=== PATIENT | female | born 1930 | race Caucasian/White ===

== ENCOUNTER 2016-09-22 10:48 | Emergency (ER) | payer MEDICARE, MEDICAID ==
[~2016-09-22] VITALS: Ht 144.8 cm; Wt 80.0 kg
[~2016-09-22 10:48] MED LIST: ALLO100 PO; AMLO5TAB2 PO; ASPI81TA11 PO; DEXI60CA PO; METO50TA PO; PRAV10TA PO
[2016-09-22 10:50] VITALS: BP 174/75; PULSE 84; PULSE 85; RESP 16; RESP 18; TEMP 98.4; O2SAT 92; O2SAT 95
--- NOTE | 2016-09-22 11:13 | PD ---
HPI Chief Complaint: Pain: Acute or Chronic Time Seen by Provider: 11:07 Travel History International Travel<30 days: No Contact w/Intl Traveler<30days: No Traveled to known affect area: No History of Present Illness HPI Delightful 85-year-old female brought in by EMS for progressively worsening left lower extremity pain and swelling. Patient has a history of DVT approximately 10 years ago on the right lower leg. Patient currently takes no anticoagulants other than 81 mg of aspirin per day. Patient states she's had left lower leg pain over the past week. She states since yesterday has become much worse with pain localized in the right distal medial thigh with some localized swelling. Patient denies fever, chills, shortness of breath, or distal lower leg numbness or weakness. She has chronic low back pain but no worse than normal. Pain is worse with weightbearing. Pain with palpation is 8/ 10, but at rest is mild at 10 over 2. It is gotten progressively worse over the past several days. Patient is noted to have normal pedal and posterior tibialis pulses in the left lower leg. Patient did call her PCP this morning who recommended she come in to the hospital for evaluation. She is allergic to codeine and penicillin. PFSH Past Medical History Hx Anticoagulant Therapy: No Arthritis: Yes Blood Disorders: No Heart Rhythm Problems: No Cancer: Yes (CERVICAL - HYSTERECTOMY) Cardiovascular Problems: Yes (HTN) High Cholesterol: Yes Chemotherapy: No Chest Pain: Yes Congestive Heart Failure: No Diabetes: No Diminished Hearing: No Deep Vein Thrombosis: Yes (R LEG) Endocrine: Yes GERD: Yes Genitourinary: No Hypertension: Yes Immune Disorder: No Musculoskeletal: Yes (arthritis) Neurologic: No Psychiatric: No Reproductive: Yes (CERVICAL CANCER) Respiratory: No Radiation Therapy: No Thyroid Disease: Yes (HYPOTHYROID) Tetanus Vaccination: Unknown Influenza Vaccination: Yes ?: Not Past Surgical History Appendectomy: Yes Cholecystectomy: Yes Gynecologic Surgery: Yes (RADICAL HYSTERECTOMY ) Hysterectomy: Yes Tonsillectomy: Yes Social History Alcohol Use: Yes (OCCASIONAL) Tobacco Use: No (30 YEARS AGO ) Substance Use: No Allergies-Medications (Allergen,Severity, Reaction): Coded Allergies: Codeine (Verified Allergy, Severe, Rash, 09/22/16) Penicillin (Verified Allergy, Severe, 09/22/16) Reported Meds & Prescriptions Reported Meds & Active Scripts Active Reported Zyloprim (Allopurinol) 100 Mg Tab 100 Mg PO BID NEB Dexilant (Dexlansoprazole) 60 Mg Cap 60 Mg PO DAILY Amlodipine (Amlodipine Besylate) 5 Mg Tab 5 Mg PO DAILY Pravastatin 10 Mg Tab 10 Mg PO DAILY Metoprolol Tartrate 50 Mg Tab 50 Mg PO BID Aspirin EC (Aspirin) 81 Mg Tabdr 81 Mg PO DAILY Review of Systems Except as stated in HPI: all other systems reviewed are Neg General / Constitutional: No: Fever, Chills Eyes: No: Visual changes HENT: No: Headaches Cardiovascular: No: Chest Pain or Discomfort, Palpitations, Irregular Rhythm, Dyspnea on exertion Respiratory: No: Cough, Shortness of Breath, Wheezing, Pleuritic Pain Gastrointestinal: No: Abdominal Pain Genitourinary: No: Dysuria Musculoskeletal: Positive: Myalgias, Arthralgias, Pain, No: Limited ROM, Weakness (see history present illness), Cramping, Edema Skin: No Rash Neurologic: No: Weakness Psychiatric: No: Depression Endocrine: No: Polydipsia Hematologic/Lymphatic: No: Easy Bruising Physical Exam Narrative GENERAL: Patient appears in no acute distress. She is alert and oriented and very delightful. SKIN: Warm and dry. Normal color. Normal turgor. No signs of cellulitis or open wound in the left lower extremity. HEAD: Atraumatic. Normocephalic. EYES: Pupils equal and round. No scleral icterus. No injection or drainage. ENT: No nasal bleeding or discharge. Mucous membranes pink and moist. NECK: Trachea midline. No JVD. Supple and nontender. CARDIOVASCULAR: Regular rate and rhythm. No murmurs gallops or rubs. RESPIRATORY: No accessory muscle use. Clear to auscultation. Breath sounds equal bilaterally. MUSCULOSKELETAL: Extremities without clubbing, cyanosis, or edema. No obvious deformities. Patient has mild swelling noted in the left distal medial thigh with localized tenderness extending into the mid thigh and also pain with palpation of the left medial calf, but negative Homans sign. NEUROLOGICAL: Awake and alert. No obvious cranial nerve deficits. Motor grossly within normal limits. Five out of 5 muscle strength in the arms and legs. Normal speech. PSYCHIATRIC: Appropriate mood and affect; insight and judgment normal. Data Data Last Documented VS Vital Signs Date Time Temp Pulse Resp B/P Pulse Ox O2 Delivery O2 Flow Rate FiO2 09/22/16 11:25 18 96 Room Air 09/22/16 10:50 98.4 85 174/75 Orders Complete Blood Count With Diff (09/22/16 11:13) Comprehensive Metabolic Panel (09/22/16 11:13) Act Partial Throm Time (Ptt) (09/22/16 11:13) Prothrombin Time / Inr (Pt) (09/22/16 11:13) Iv Access Insert/Monitor (09/22/16 11:13) Electrocardiogram (09/22/16 11:13) Ecg Monitoring (09/22/16 11:13) Oximetry (09/22/16 11:13) Chest, Single Ap (09/22/16 11:13) Sodium Chloride 0.9% Flush (Ns Flush) (09/22/16 11:15) Us Leg Venous Doppler (09/22/16 11:13) Labs Laboratory Tests Test 09/22/16 11:00 White Blood Count 11.3 TH/MM3 Red Blood Count 4.46 MIL/MM3 Hemoglobin 12.7 GM/DL Hematocrit 38.9 % Mean Corpuscular Volume 87.2 FL Mean Corpuscular Hemoglobin 28.5 PG Mean Corpuscular Hemoglobin 32.6 % Concent Red Cell Distribution Width 15.4 % Platelet Count 263 TH/MM3 Mean Platelet Volume 8.5 FL Neutrophils (%) (Auto) 68.3 % Lymphocytes (%) (Auto) 19.7 % Monocytes (%) (Auto) 8.9 % Eosinophils (%) (Auto) 2.5 % Basophils (%) (Auto) 0.6 % Neutrophils # (Auto) 7.7 TH/MM3 Lymphocytes # (Auto) 2.2 TH/MM3 Monocytes # (Auto) 1.0 TH/MM3 Eosinophils # (Auto) 0.3 TH/MM3 Basophils # (Auto) 0.1 TH/MM3 CBC Comment DIFF FINAL Differential Comment Prothrombin Time 10.4 SEC Prothromb Time International 0.9 RATIO Ratio Activated Partial 29.2 SEC Thromboplast Time Sodium Level 138 MEQ/L Potassium Level 4.3 MEQ/L Chloride Level 103 MEQ/L Carbon Dioxide Level 26.1 MEQ/L Anion Gap 9 MEQ/L Blood Urea Nitrogen 18 MG/DL Creatinine 0.91 MG/DL Estimat Glomerular Filtration 58 ML/MIN Rate Random Glucose 143 MG/DL Calcium Level 9.3 MG/DL Total Bilirubin 0.8 MG/DL Aspartate Amino Transf 15 U/L (AST/SGOT) Alanine Aminotransferase 16 U/L (ALT/SGPT) Alkaline Phosphatase 130 U/L Total Protein 7.5 GM/DL Albumin 3.7 GM/DL MDM Medical Decision Making Medical Screen Exam Complete: Yes Emergency Medical Condition: Yes Medical Record Reviewed: Yes Differential Diagnosis Left leg pain. Left leg swelling. Possible DVT. Narrative Course Patient is medically stable at time of exam. Labs ordered including CBC, CMP, PT PTT and INR. Chest x-ray is ordered as well as Doppler ultrasound of the left lower extremity. Chest x-ray is unremarkable per radiologist. CBC shows slight leukocytosis of 11.3, without right shift. CMP is unremarkable. Coag studies are normal. Ultrasound shows no DVT per radiologist. Discuss results with the patient. Recommend trial of prednisone 20 mg daily for the next 5 days. Patient can take Tylenol as needed as well for pain. Patient should follow-up with her primary care physician in the next week to ensure improvement. Patient can return to emergency department if symptoms worsen as discussed. Diagnosis Primary Impression: Leg pain, left Additional Impression: Sciatica of left side Referrals: Primary Care Physician Patient Instructions: General Instructions, Sciatica (ED) Additional Instructions: Chest x-ray is unremarkable per radiologist. CBC shows slight leukocytosis of 11.3, without right shift. CMP is unremarkable. Coag studies are normal. Ultrasound shows no DVT per radiologist. Discuss results with the patient. Recommend trial of prednisone 20 mg daily for the next 5 days. Patient can take Tylenol as needed as well for pain. Patient should follow-up with her primary care physician in the next week to ensure improvement. Patient can return to emergency department if symptoms worsen as discussed. Med/Other Pt SpecificInfo: Prescription(s) given Disposition: 01 DISCHARGE HOME Condition: Stable Moody Christopher Sep 22, 2016 11:13
[2016-09-22] MEDS ORDERED: SODIUM CHLORIDE 0.9% FLUSH 5 ML FLUSH IVF PRN (11:15)
[2016-09-22 11:25] VITALS: RESP 18; O2SAT 96
--- NOTE | 2016-09-22 11:38 | PD ---
Physical Exam Date Seen by Provider: Sep 22, 2016 Data Data Last Documented VS Vital Signs Date Time Temp Pulse Resp B/P Pulse Ox O2 Delivery O2 Flow Rate FiO2 09/22/16 11:25 18 96 Room Air 09/22/16 10:50 98.4 85 174/75 Patient is awake and alert and in no acute distress. She is having no respiratory difficulty. Orders Complete Blood Count With Diff (09/22/16 11:13) Comprehensive Metabolic Panel (09/22/16 11:13) Act Partial Throm Time (Ptt) (09/22/16 11:13) Prothrombin Time / Inr (Pt) (09/22/16 11:13) Iv Access Insert/Monitor (09/22/16 11:13) Electrocardiogram (09/22/16 11:13) Ecg Monitoring (09/22/16 11:13) Oximetry (09/22/16 11:13) Chest, Single Ap (09/22/16 11:13) Sodium Chloride 0.9% Flush (Ns Flush) (09/22/16 11:15) Us Leg Venous Doppler (09/22/16 11:13) MDM Supervised Visit with JULIETA: Yes Narrative Course I, Dr. Upton, have reviewed the advance practice practitioner's documentation and am in agreement, met with the patient face to face, made the diagnosis, and the medical decision making was done by me. *My assessment and Findings: She has a DVT. Shasta Upton MD Sep 22, 2016 11:38
--- NOTE | 2016-09-22 11:49 | RADRPT ---
EXAM DATE/TIME: 09/22/2016 11:11 [facility] COMPARISON: CHEST SINGLE AP, June 22, 2016, 22:33. INDICATIONS : Cough, no shortness of breath, left leg edema MEDICAL HISTORY : Gastroesophageal reflux disease. phlebitis of lower extremity SURGICAL HISTORY : None. ENCOUNTER: Initial ACUITY: 2 days PAIN SCORE: 0/10 LOCATION: Bilateral chest FINDINGS: A single view of the chest demonstrates the lungs to be symmetrically aerated without evidence of mas s, infiltrate or effusion. Atherosclerotic calcifications are again noted in the aorta. The cardiomed iastinal contours are unremarkable. Osseous structures are intact. CONCLUSION: No acute disease. There is no evidence of pneumonia. Austin Chao MD on September 22, 2016 at 11:47 Board Certified Radiologist. This report was verified electronically.
[2016-09-22 11:55] LABS: AUTOMATED NEUTROPHIL # 7.7 TH/MM3 (1.8-7.7); BASOPHIL # 0.1 TH/MM3 (0-0.2); BASOPHIL % 0.6 % (0.0-2.0); EOSINOPHIL # 0.3 TH/MM3 (0-0.4); EOSINOPHIL % 2.5 % (0.0-4.0); HEMATOCRIT 38.9 % (35.0-46.0); HEMO FLAGS DIFF FINAL; LYMPH % 19.7 % (9.0-44.0); LYMPHOCYTE # 2.2 TH/MM3 (1.0-4.8); MEAN CELL VOLUME 87.2 FL (80.0-100.0); MEAN CORPUSCULAR HEMOGLOBIN 28.5 PG (27.0-34.0); MEAN CORPUSCULAR HGB CONC 32.6 % (32.0-36.0); MONO % 8.9 % (0.0-8.0); NEUT % 68.3 % (16.0-70.0); PLATELET COUNT 263 TH/MM3 (150-450); RED BLOOD COUNT 4.46 MIL/MM3 (4.00-5.30); RED CELL DISTRIBUTION WIDTH 15.4 % (11.6-17.2); WHITE BLOOD COUNT 11.3 TH/MM3 (4.0-11.0)
[2016-09-22 12:07] LABS: APTT (PATIENT) 29.2 SEC (24.3-30.1); INTERNATIONAL NORMALIZED RATIO 0.9 RATIO; PROTHROMBIN TIME - PATIENT 10.4 SEC (9.8-11.6)
[2016-09-22 12:21] LABS: ALT (GPT) 16 U/L (10-53); ANION GAP 9 MEQ/L (5-15); AST (GOT) 15 U/L (15-37); BICARBONATE 26.1 MEQ/L (21.0-32.0); BLOOD UREA NITROGEN 18 MG/DL (7-18); CHLORIDE 103 MEQ/L (98-107); GLOMERULAR FILTRATION RATE 58 ML/MIN (>89); POTASSIUM 4.3 MEQ/L (3.5-5.1); SODIUM (NA) 138 MEQ/L (136-145)
[2016-09-22 12:23] LABS: ALKALINE PHOSPHATASE 130 U/L (45-117); TOTAL BILIRUBIN ADULT 0.8 MG/DL (0.2-1.0)
--- NOTE | 2016-09-22 13:25 | RADRPT ---
EXAM DATE/TIME: 09/22/2016 12:35 [facility] COMPARISON: No previous studies available for comparison. INDICATIONS : Left knee pain. MEDICAL HISTORY : Hypothyroidism. Hypercholesterolemia. Arthritis. Cervical carcinoma. HTN. Chest pain. DVT. GERD. SURGICAL HISTORY : Tonsillectomy. Appendectomy. Cholecystectomy. Radical hysterectomy. Right knee surgery. ENCOUNTER: Initial ACUITY: 4 - 6 months PAIN SCORE: 6/10 LOCATION: Left leg. TECHNIQUE: Venous ultrasound of the leg was performed from the inguinal ligament to the proximal calf. Real-melvin e, color Doppler and spectral tracing, compression and augmentation techniques were used. FINDINGS: There is normal compressibility of the deep venous system from the inguinal region to the proximal ca lf. No echogenic clot is seen in the lumen of the common femoral, femoral, popliteal, and posterior tibial veins. There is a normal response of the venous system to proximal and distal augmentation an d respiration. CONCLUSION: Negative for deep venous thrombosis. Scott Leblanc MD FACR on September 22, 2016 at 13:23 Board Certified Radiologist. This report was verified electronically.
[2016-09-22] MEDS ORDERED: PRED20 PO (13:47)
[2016-09-22] MEDS ORDERED: ACET325T PO (13:47)
[2016-09-22 13:56] VITALS: BP 170/68; PULSE 90; RESP 18; O2SAT 96
--- NOTE | 2016-09-23 08:18 | EKG ---
Date Performed: 09/22/2016 Time Performed: 11:37:57 PTAGE: 85 years EKG: Sinus rhythm NONSPECIFIC ST & T-WAVE ABNORMALITY Compared to previous tracing, nonspecific ST-T changes are new. BORDERLINE ECG PREVIOUS TRACING : 06/24/2016 08.36 DOCTOR: Edson Buckley Interpretating Date/Time 09/23/2016 08:16:02
== END 2016-09-22 14:21 | disposition home or self-care (01) ==
LOC: NEPA 10:48
DX: M54.32 Sciatica, left side (principal); Z86.718 Personal history of other venous thrombosis and embolism; E78.00 Pure hypercholesterolemia, unspecified; I10 Essential (primary) hypertension; K21.9 Gastro-esophageal reflux disease without esophagitis; E03.9 Hypothyroidism, unspecified
CPT/HCPCS: 71010; 80053; 85025; 85610; 85730; 93005; 93971

== ENCOUNTER 2017-01-29 05:33 | Emergency (ER) | payer MEDICARE, OTHER ==
[~2017-01-29 05:33] MED LIST changes: +ACET325T PO; +PRED20 PO
[2017-01-29 05:36] VITALS: BP 191/74; PULSE 87; RESP 16; TEMP 98.3; O2SAT 96
[2017-01-29] MEDS ORDERED: SODIUM CHLORIDE 0.9% FLUSH 10 ML FLUSH IV FLUSH PRN (05:45)
[2017-01-29] MEDS ORDERED: LEVO50TA4 PO (05:46)
[2017-01-29] MEDS ORDERED: CHOL1CAP8 PO (05:46)
[2017-01-29] MEDS ORDERED: FOLI400T PO (05:46)
[2017-01-29] MEDS ORDERED: DEXI60CA2 (05:46)
[2017-01-29] MEDS ORDERED: PYRI100T PO (05:46)
[2017-01-29] MEDS ORDERED: VITA250T3 PO (05:47)
[2017-01-29] MEDS ORDERED: OMEGCAP PO (05:47)
[2017-01-29] MEDS ORDERED: COQ-50CA2 (05:47)
[2017-01-29] MEDS ORDERED: META48.54 PO (05:48)
--- NOTE | 2017-01-29 05:48 | PD ---
HPI Chief Complaint: Abdominal Pain Time Seen by Provider: 05:43 Travel History International Travel<30 days: No Contact w/Intl Traveler<30days: No Traveled to known affect area: No History of Present Illness HPI The patient was seen and examined in the presence of the nurse. This patient complains of upper abdominal pain and bloating. Duration 10 hours. Severity is moderate. She denies vomiting or diarrhea or constipation or fever. She had a normal bowel movement yesterday evening. She reports having her gallbladder and appendix and ovaries and uterus all removed in the past. No alleviating factors. No lower quadrant pains and no urinary symptoms PFSH Past Medical History Hx Anticoagulant Therapy: No Arthritis: Yes Blood Disorders: No Heart Rhythm Problems: No Cancer: Yes (CERVICAL - HYSTERECTOMY) Cardiovascular Problems: Yes (HTN) High Cholesterol: Yes Chemotherapy: No Chest Pain: Yes Congestive Heart Failure: No Diabetes: No Diminished Hearing: No Deep Vein Thrombosis: Yes (R LEG) Endocrine: Yes Gastrointestinal Disorders: Yes (GERD) GERD: Yes Genitourinary: No Hypertension: Yes Immune Disorder: No Musculoskeletal: Yes (arthritis) Neurologic: No Psychiatric: No Reproductive: Yes (CERVICAL CANCER) Respiratory: No Radiation Therapy: No Thyroid Disease: Yes (HYPO) ?: Not Past Surgical History Appendectomy: Yes Cholecystectomy: Yes Gynecologic Surgery: Yes (RADICAL HYSTERECTOMY ) Hysterectomy: Yes Tonsillectomy: Yes Social History Alcohol Use: Yes (OCCASIONAL) Tobacco Use: No (30 YEARS AGO ) Substance Use: No Allergies-Medications (Allergen,Severity, Reaction): Coded Allergies: Codeine (Verified Allergy, Severe, Rash, 01/29/17) Penicillin (Verified Allergy, Severe, 01/29/17) Reported Meds & Prescriptions Reported Meds & Active Scripts Active Zofran (Ondansetron HCl) 4 Mg Tab 4 Mg PO Q6HR PRN Flagyl (Metronidazole) 500 Mg Tab 500 Mg PO QID Cipro (Ciprofloxacin HCl) 500 Mg Tab 500 Mg PO BID Reported Metamucil (Psyllium Hydrophilic Mucilloid) 48.57 % Pow PO DAILY Vitamin C (Ascorbic Acid) 250 Mg Tab 500 Mg PO Coq-10 (Coenzyme Q10 (Ubidecarenone)) 50 Mg Cap Jennings-3 Fish Oil/Vitamin (Fish Oil-Cholecalciferol) 1,000-1,000 Mg Cap 2 Cap PO DAILY Vitamin B-6 (Pyridoxine HCl) 100 Mg Tab 100 Mg PO DAILY Vitamin D3 (Cholecalciferol) 400 Unit Cap 400 Units PO DAILY Folic Acid 400 Mcg Tab 400 Mcg PO DAILY Dexilant (Dexlansoprazole) 60 Mg Cap.bp Levothyroxine (Levothyroxine Sodium) 50 Mcg Tab 50 Mcg PO DAILY Amlodipine (Amlodipine Besylate) 5 Mg Tab 5 Mg PO DAILY Pravastatin 10 Mg Tab 10 Mg PO DAILY Aspirin EC (Aspirin) 81 Mg Tabdr 81 Mg PO DAILY Review of Systems General / Constitutional: No: Fever Eyes: No: Visual changes HENT: No: Headaches Cardiovascular: No: Chest Pain or Discomfort Respiratory: No: Shortness of Breath Gastrointestinal: Positive: Abdominal Pain Genitourinary: No: Dysuria Musculoskeletal: No: Pain Skin: No Rash Neurologic: No: Weakness Psychiatric: No: Depression Endocrine: No: Polydipsia Hematologic/Lymphatic: No: Easy Bruising Physical Exam Narrative GENERAL: Well-nourished, well-developed patient with upper abdominal pain and bloating. SKIN: Focused skin assessment reveals no rash and nodules. Skin is Warm and dry. HEAD: Atraumatic. Normocephalic. EYES: Pupils equal and round. No scleral icterus. No injection or drainage. ENT: No nasal bleeding or discharge. Mucous membranes pink and moist. NECK: Trachea midline. No JVD. CARDIOVASCULAR: Regular rate and rhythm. No murmur appreciated. RESPIRATORY: No accessory muscle use. Clear to auscultation. Breath sounds equal bilaterally. GASTROINTESTINAL: Abdomen soft, mild upper quadrant tenderness of right and left side without rebound or guarding. Hepatic and splenic margins not palpable. Has hyperactive bowel sounds MUSCULOSKELETAL: No obvious deformities. No clubbing. No cyanosis. No edema. NEUROLOGICAL: Awake and alert. No obvious cranial nerve deficits. Motor grossly within normal limits. Normal speech. PSYCHIATRIC: Appropriate mood and affect; insight and judgment normal. Data Data Last Documented VS Vital Signs Date Time Temp Pulse Resp B/P Pulse Ox O2 Delivery O2 Flow Rate FiO2 01/29/17 05:36 98.3 87 16 191/74 96 Orders Complete Blood Count With Diff (01/29/17 05:43) Comprehensive Metabolic Panel (01/29/17 05:43) Lipase (01/29/17 05:43) Prothrombin Time / Inr (Pt) (01/29/17 05:43) Act Partial Throm Time (Ptt) (01/29/17 05:43) Ct Abd/Pel W/O Iv Contrast (01/29/17 05:43) Iv Access Insert/Monitor (01/29/17 05:43) NPO (01/29/17 05:43) Sodium Chloride 0.9% Flush (Ns Flush) (01/29/17 05:45) Labs Laboratory Tests Test 01/29/17 05:50 White Blood Count 10.5 TH/MM3 Red Blood Count 4.34 MIL/MM3 Hemoglobin 12.4 GM/DL Hematocrit 37.6 % Mean Corpuscular Volume 86.7 FL Mean Corpuscular Hemoglobin 28.6 PG Mean Corpuscular Hemoglobin 33.0 % Concent Red Cell Distribution Width 15.0 % Platelet Count 295 TH/MM3 Mean Platelet Volume 8.5 FL Neutrophils (%) (Auto) 56.6 % Lymphocytes (%) (Auto) 31.1 % Monocytes (%) (Auto) 8.7 % Eosinophils (%) (Auto) 2.6 % Basophils (%) (Auto) 1.0 % Neutrophils # (Auto) 6.0 TH/MM3 Lymphocytes # (Auto) 3.3 TH/MM3 Monocytes # (Auto) 0.9 TH/MM3 Eosinophils # (Auto) 0.3 TH/MM3 Basophils # (Auto) 0.1 TH/MM3 CBC Comment DIFF FINAL Differential Comment Prothrombin Time 10.1 SEC Prothromb Time International 0.9 RATIO Ratio Activated Partial 28.2 SEC Thromboplast Time Sodium Level 141 MEQ/L Potassium Level 3.5 MEQ/L Chloride Level 106 MEQ/L Carbon Dioxide Level 25.2 MEQ/L Anion Gap 10 MEQ/L Blood Urea Nitrogen 16 MG/DL Creatinine 0.82 MG/DL Estimat Glomerular Filtration 66 ML/MIN Rate Random Glucose 113 MG/DL Calcium Level 9.0 MG/DL Total Bilirubin 0.5 MG/DL Aspartate Amino Transf 20 U/L (AST/SGOT) Alanine Aminotransferase 22 U/L (ALT/SGPT) Alkaline Phosphatase 156 U/L Total Protein 7.5 GM/DL Albumin 3.4 GM/DL Lipase 96 U/L [facility] Medical Decision Making Medical Screen Exam Complete: Yes Emergency Medical Condition: Yes Medical Record Reviewed: Yes Differential Diagnosis Ileus, obstruction, pancreatitis Narrative Course I have reviewed the patient's electronic medical record. IV placed CBC is normal metabolic profile is normal LFT's are normal lipase is normal CT of abdomen and pelvis shows mild diverticulitis but no obstruction or other dangerous finding I discussed results with her. She does say now that she is having left lower quadrant pain but it's very mild and she doesn't want any pain medicine. She would like nausea medicine. I wrote her one week of Cipro and Flagyl. Call her primary physician today for follow-up and return if worse Diagnosis Primary Impression: Diverticulitis large intestine w/o perforation or abscess w/o bleeding Additional Instructions: The patient was advised to follow up with their physician and return if they worsen. Med/Other Pt SpecificInfo: Prescription(s) given Scripts Ondansetron (Zofran)4 Mg Tab4 Mg PO Q6HR PRN (NAUSEA OR VOMITING) #12 TAB Ref 0 Prov:Brent Gary MD 01/29/17 Metronidazole (Flagyl)500 Mg [id number] Mg PO QID #28 TAB Ref 0 Prov:Brent Gary MD 01/29/17 Ciprofloxacin (Cipro)500 Mg [id number] Mg PO BID #14 TAB Ref 0 Prov:Brent Gary MD 01/29/17 Disposition: DISCHARGE HOME Condition: Stable Brent Gary MD Jan 29, 2017 05:48
[2017-01-29 06:05] LABS: BASOPHIL # 0.1 TH/MM3 (0-0.2); EOSINOPHIL # 0.3 TH/MM3 (0-0.4); EOSINOPHIL % 2.6 % (0.0-4.0); HEMATOCRIT 37.6 % (35.0-46.0); HEMO FLAGS DIFF FINAL; LYMPH % 31.1 % (9.0-44.0); LYMPHOCYTE # 3.3 TH/MM3 (1.0-4.8); MEAN CELL VOLUME 86.7 FL (80.0-100.0); MEAN CORPUSCULAR HEMOGLOBIN 28.6 PG (27.0-34.0); MONO % 8.7 % (0.0-8.0); NEUT % 56.6 % (16.0-70.0); PLATELET COUNT 295 TH/MM3 (150-450); RED BLOOD COUNT 4.34 MIL/MM3 (4.00-5.30); WHITE BLOOD COUNT 10.5 TH/MM3 (4.0-11.0)
[2017-01-29 06:13] LABS: APTT (PATIENT) 28.2 SEC (24.3-30.1); INTERNATIONAL NORMALIZED RATIO 0.9 RATIO; PROTHROMBIN TIME - PATIENT 10.1 SEC (9.8-11.6)
[2017-01-29 06:26] LABS: ALT (GPT) 22 U/L (10-53); ANION GAP 10 MEQ/L (5-15); AST (GOT) 20 U/L (15-37); BICARBONATE 25.2 MEQ/L (21.0-32.0); BLOOD UREA NITROGEN 16 MG/DL (7-18); CHLORIDE 106 MEQ/L (98-107); GLOMERULAR FILTRATION RATE 66 ML/MIN (>89); POTASSIUM 3.5 MEQ/L (3.5-5.1); SODIUM (NA) 141 MEQ/L (136-145)
[2017-01-29 06:28] LABS: ALKALINE PHOSPHATASE 156 U/L (45-117); TOTAL BILIRUBIN ADULT 0.5 MG/DL (0.2-1.0)
--- NOTE | 2017-01-29 06:44 | RADRPT ---
EXAM DATE/TIME: 01/29/2017 06:23 [facility] COMPARISON: CT ABDOMEN & PELVIS W CONTRAST, June 23, 2016, 18:41. INDICATIONS : Upper abdominal pain, distention and vomiting. ORAL CONTRAST: No oral contrast ingested. RADIATION DOSE: 14.08 CTDIvol (mGy) MEDICAL HISTORY : Hypertension. Gastroesophageal reflux disease. Carcinoma, Cervical. SURGICAL HISTORY : Appendectomy. Cholecystectomy.Hysterectomy. ENCOUNTER: Initial ACUITY: 1 day PAIN SCALE: 6/10 LOCATION: Bilateral upper quadrant TECHNIQUE: Volumetric scanning of the abdomen and pelvis was performed. Using automated exposure control and ad justment of the mA and/or kV according to patient size, radiation dose was kept as low as reasonably achievable to obtain optimal diagnostic quality images. FINDINGS: LOWER LUNGS: The visualized lower lungs are clear. LIVER: Homogeneous density without lesion. There is no dilation of the biliary tree. Previous cholecystecto my. SPLEEN: Normal size without lesion. PANCREAS: Within normal limits. KIDNEYS: Normal in size and shape. There is no mass, stone, or hydronephrosis. ADRENAL GLANDS: Within normal limits. VASCULAR: There is atherosclerosis of the abdominal aorta. No aneurysm. BOWEL/MESENTERY: Small hiatal hernia noted. Stomach otherwise appears normal. No small bowel distention. There is gio id sigmoid colon diverticulosis. Mild perisigmoid edema noted but no high-grade inflammatory changes. There is no evidence of bowel obstruction. ABDOMINAL WALL: Within normal limits. RETROPERITONEUM: There is no lymphadenopathy. BLADDER: No wall thickening or mass. REPRODUCTIVE: Within normal limits. INGUINAL: There is no lymphadenopathy or hernia. MUSCULOSKELETAL: No acute bony abnormality demonstrated. CONCLUSION: 1. Severe diverticulosis and mild uncomplicated diverticulitis of the sigmoid colon. 2. Small hiatal hernia. 3. Atherosclerosis of the abdominal aorta. Thomas Dobbins MD on January 29, 2017 at 6:40 Board Certified Radiologist. This report was verified electronically.
[2017-01-29] MEDS ORDERED: METR-1 PO (06:51)
[2017-01-29] MEDS ORDERED: ZOFR4TAB PO (06:51)
[2017-01-29] MEDS ORDERED: CIPR-9 PO (06:51)
[2017-01-29] MEDS ORDERED: ONDANSETRON HCL 4 MG/2 ML VIAL IV ONE (07:00)
[2017-01-29 08:30] VITALS: BP 131/86
== END 2017-01-29 08:57 | disposition home or self-care (01) ==
LOC: NEPC 05:33
DX: K57.32 Diverticulitis of large intestine without perforation or abscess without bleeding (principal)
CPT/HCPCS: 74176; 80053; 83690; 85025; 85610; 85730; 96374; 99285; J2405

== ENCOUNTER 2017-03-01 15:51 | Emergency (ER) | payer MEDICARE, MEDICAID ==
[~2017-03-01] VITALS: Ht 152.4 cm; Wt 70.0 kg
[~2017-03-01 15:51] MED LIST changes: -ACET325T PO; -ALLO100 PO; +CHOL1CAP8 PO; +CIPR-9 PO; +COQ-50CA2; -DEXI60CA PO; +DEXI60CA2; +FOLI400T PO; +LEVO50TA4 PO; +META48.54 PO; -METO50TA PO; +METR-1 PO; +OMEGCAP PO; -PRED20 PO; +PYRI100T PO; +VITA250T3 PO; +ZOFR4TAB PO
[2017-03-01 15:55] VITALS: BP 147/65; PULSE 83; RESP 16; TEMP 98.2; O2SAT 97
--- NOTE | 2017-03-01 16:27 | PD ---
HPI Chief Complaint: Respiratory Symptoms Time Seen by Provider: 15:55 Travel History International Travel<30 days: No Contact w/Intl Traveler<30days: No Traveled to known affect area: No History of Present Illness HPI The patient was seen and examined in the presence of the nurse. This patient complains of 2 day history of cough and congestion and postnasal drip. She has had multiple episodes of diarrhea over the last 2 days. No vomiting or fever. She is not having abdominal pain. Symptoms severity is moderate. No alleviating factors. PFSH Past Medical History Hx Anticoagulant Therapy: No Arthritis: Yes Blood Disorders: No Heart Rhythm Problems: No Cancer: Yes (CERVICAL - HYSTERECTOMY) Cardiovascular Problems: Yes (HTN) High Cholesterol: Yes Chemotherapy: No Chest Pain: Yes Congestive Heart Failure: No Diabetes: No Diminished Hearing: No Deep Vein Thrombosis: Yes (R LEG) Endocrine: Yes Gastrointestinal Disorders: Yes (GERD) GERD: Yes Genitourinary: No Hypertension: Yes Immune Disorder: No Musculoskeletal: Yes (arthritis) Neurologic: No Psychiatric: No Reproductive: Yes (CERVICAL CANCER) Respiratory: No Radiation Therapy: No Thyroid Disease: Yes (HYPO) Past Surgical History Appendectomy: Yes Cholecystectomy: Yes Gynecologic Surgery: Yes (RADICAL HYSTERECTOMY ) Hysterectomy: Yes Tonsillectomy: Yes Social History Alcohol Use: Yes (OCCASIONAL) Tobacco Use: No (30 YEARS AGO ) Substance Use: No Allergies-Medications (Allergen,Severity, Reaction): Coded Allergies: Codeine (Verified Allergy, Severe, Rash, 01/29/17) Penicillin (Verified Allergy, Severe, 01/29/17) Reported Meds & Prescriptions Reported Meds & Active Scripts Active Zofran (Ondansetron HCl) 4 Mg Tab 4 Mg PO Q6HR PRN Reported Vitamin B-12 (Cyanocobalamin) 500 Mcg Tab 1,500 Mcg PO DAILY Zyloprim (Allopurinol) 100 Mg Tab 100 Mg PO BID Co Q-10 (Coenzyme Q10 (Ubidecarenone)) 200 Mg Cap 200 Mg PO DAILY Fish Oil ([place]-3 Fatty Acids) 1,000 Mg Cap 2,000 Mg PO DAILY Dexilant (Dexlansoprazole) 60 Mg Cap.bp 60 Mg PO DAILY Pravastatin 80 Mg Tab 80 Mg PO HS Vitamin B-6 (Pyridoxine HCl) 100 Mg Tab 100 Mg PO DAILY Vitamin D3 (Cholecalciferol) 400 Unit Cap 400 Units PO DAILY Folic Acid 400 Mcg Tab 400 Mcg PO DAILY Levothyroxine (Levothyroxine Sodium) 50 Mcg Tab 50 Mcg PO DAILY Amlodipine (Amlodipine Besylate) 5 Mg Tab 5 Mg PO DAILY Aspirin EC (Aspirin) 81 Mg Tabdr 81 Mg PO DAILY Review of Systems General / Constitutional: No: Fever Eyes: No: Visual changes HENT: Positive: Congestion, No: Headaches Cardiovascular: No: Chest Pain or Discomfort Respiratory: Positive: Cough, No: Shortness of Breath Gastrointestinal: Positive: Diarrhea, No: Abdominal Pain Genitourinary: No: Dysuria Musculoskeletal: No: Pain Skin: No Rash Neurologic: No: Weakness Psychiatric: No: Depression Endocrine: No: Polydipsia Hematologic/Lymphatic: No: Easy Bruising Physical Exam Narrative GENERAL: Well-nourished, well-developed patient in no apparent distress. SKIN: Focused skin assessment reveals no rash and nodules. Skin is Warm and dry. HEAD: Atraumatic. Normocephalic. EYES: Pupils equal and round. No scleral icterus. No injection or drainage. ENT: No nasal bleeding or discharge. Mucous membranes pink and moist. NECK: Trachea midline. No JVD. CARDIOVASCULAR: Regular rate and rhythm. No murmur appreciated. RESPIRATORY: No accessory muscle use. Clear to auscultation. Breath sounds equal bilaterally. GASTROINTESTINAL: Abdomen soft, non-tender, nondistended. Hepatic and splenic margins not palpable. MUSCULOSKELETAL: No obvious deformities. No clubbing. No cyanosis. No edema. NEUROLOGICAL: Awake and alert. No obvious cranial nerve deficits. Motor grossly within normal limits. Normal speech. PSYCHIATRIC: Appropriate mood and affect; insight and judgment normal. Data Data Last Documented VS Vital Signs Date Time Temp Pulse Resp B/P Pulse Ox O2 Delivery O2 Flow Rate FiO2 03/01/17 15:55 83 16 97 03/01/17 15:55 98.2 147/65 Orders Iv Access Insert/Monitor (03/01/17 16:20) Complete Blood Count With Diff (03/01/17 16:20) Basic Metabolic Panel (Bmp) (03/01/17 16:20) Chest, Single Ap (03/01/17 ) Sodium Chlorid 0.9% 500 Ml Inj (Ns 500 M (03/01/17 16:30) Labs Laboratory Tests Test 03/01/17 16:35 White Blood Count 10.2 TH/MM3 Red Blood Count 4.07 MIL/MM3 Hemoglobin 12.3 GM/DL Hematocrit 35.0 % Mean Corpuscular Volume 86.0 FL Mean Corpuscular Hemoglobin 30.2 PG Mean Corpuscular Hemoglobin 35.1 % Concent Red Cell Distribution Width 15.8 % Platelet Count 281 TH/MM3 Mean Platelet Volume 8.7 FL Neutrophils (%) (Auto) 58.2 % Lymphocytes (%) (Auto) 21.9 % Monocytes (%) (Auto) 16.0 % Eosinophils (%) (Auto) 3.1 % Basophils (%) (Auto) 0.8 % Neutrophils # (Auto) 5.9 TH/MM3 Lymphocytes # (Auto) 2.2 TH/MM3 Monocytes # (Auto) 1.6 TH/MM3 Eosinophils # (Auto) 0.3 TH/MM3 Basophils # (Auto) 0.1 TH/MM3 CBC Comment DIFF FINAL Differential Comment Sodium Level 139 MEQ/L Potassium Level 4.9 MEQ/L Chloride Level 102 MEQ/L Carbon Dioxide Level 26.6 MEQ/L Anion Gap 10 MEQ/L Blood Urea Nitrogen 12 MG/DL Creatinine 0.77 MG/DL Estimat Glomerular Filtration 71 ML/MIN Rate Random Glucose 106 MG/DL Calcium Level 8.7 MG/DL MDM Medical Decision Making Medical Screen Exam Complete: Yes Emergency Medical Condition: Yes Medical Record Reviewed: Yes Differential Diagnosis Pneumonia, bronchitis, gastroenteritis Narrative Course I have reviewed the patient's electronic medical record. I saw her last month for diverticulitis IV placed I gave her normal saline IV CBC is normal Metabolic profile is normal I reviewed her chest x-ray which shows no consolidation. Radiologist interpretation is noted. No clinical suspicion of CHF I think she has a viral syndrome causing her cough and congestion and postnasal drip She now complains of ear pain but her ears look normal No indication for antibiotic therapy Recommend primary care follow-up and return if worse Diagnosis Primary Impression: Acute viral syndrome Additional Impressions: Diarrhea Qualified Code: A09 - Diarrhea of presumed infectious origin Cough Additional Instructions: The patient was advised to follow up with their physician and return if they worsen. Med/Other Pt SpecificInfo: Other Disposition: 01 DISCHARGE HOME Condition: Stable Brent Gary MD Mar 01, 2017 16:27
[2017-03-01] MEDS ORDERED: SODIUM CHLORID 0.9% 500 ML INJ 500 ML IV SCH (16:30)
--- NOTE | 2017-03-01 16:40 | RADRPT ---
EXAM DATE/TIME: 03/01/2017 16:20 [facility] COMPARISON: CHEST SINGLE AP, September 22, 2016, 11:11. INDICATIONS : Short of breath MEDICAL HISTORY : Gastroesophageal reflux disease. phlebitis of lower extremity SURGICAL HISTORY : None. ENCOUNTER: Initial ACUITY: 3 days PAIN SCORE: 0/10 LOCATION: chest FINDINGS: A single view of the chest demonstrates the lungs to be symmetrically aerated without evidence of mas s, infiltrate or effusion. Cardiomegaly and increased pulmonary vascularity. The cardiomediastinal c ontours are unremarkable. Osseous structures are intact. CONCLUSION: Cardiomegaly with increased pulmonary vascularity. Calvin Geronimo MD on March 01, 2017 at 16:38 Board Certified Radiologist. This report was verified electronically.
[2017-03-01 16:56] LABS: AUTOMATED NEUTROPHIL # 5.9 TH/MM3 (1.8-7.7); BASOPHIL # 0.1 TH/MM3 (0-0.2); BASOPHIL % 0.8 % (0.0-2.0); EOSINOPHIL # 0.3 TH/MM3 (0-0.4); EOSINOPHIL % 3.1 % (0.0-4.0); HEMO FLAGS DIFF FINAL; LYMPH % 21.9 % (9.0-44.0); LYMPHOCYTE # 2.2 TH/MM3 (1.0-4.8); MEAN CORPUSCULAR HEMOGLOBIN 30.2 PG (27.0-34.0); MEAN CORPUSCULAR HGB CONC 35.1 % (32.0-36.0); NEUT % 58.2 % (16.0-70.0); PLATELET COUNT 281 TH/MM3 (150-450); RED BLOOD COUNT 4.07 MIL/MM3 (4.00-5.30); RED CELL DISTRIBUTION WIDTH 15.8 % (11.6-17.2); WHITE BLOOD COUNT 10.2 TH/MM3 (4.0-11.0)
[2017-03-01] MEDS ORDERED: CO Q200C PO (17:17)
[2017-03-01] MEDS ORDERED: VITA500T4 PO (17:17)
[2017-03-01] MEDS ORDERED: FISH1000 PO (17:17)
[2017-03-01] MEDS ORDERED: DEXI60CA2 PO (17:17)
[2017-03-01] MEDS ORDERED: ALLO100 PO (17:17)
[2017-03-01] MEDS ORDERED: PRAV80TA2 PO (17:17)
[2017-03-01 17:37] LABS: BICARBONATE 26.6 MEQ/L (21.0-32.0); POTASSIUM 4.9 MEQ/L (3.5-5.1)
--- NOTE | 2017-03-01 21:34 | EKG ---
Date Performed: 03/01/2017 Time Performed: 16:09:34 PTAGE: 86 years EKG: Sinus rhythm NORMAL ECG PREVIOUS TRACING : 09/22/2016 11.37 Compared to previous tracing, nonspecific T wave changes mcconnell ve resolved. DOCTOR: Mark Rondon Interpretating Date/Time 03/01/2017 21:32:40
== END 2017-03-01 18:50 | disposition home or self-care (01) ==
LOC: NEPC 15:51
DX: B34.9 Viral infection, unspecified (principal); A09 Infectious gastroenteritis and colitis, unspecified; I10 Essential (primary) hypertension; E78.00 Pure hypercholesterolemia, unspecified; E03.9 Hypothyroidism, unspecified; M19.90 Unspecified osteoarthritis, unspecified site
CPT/HCPCS: 71010; 80048; 85025; 93005; 99284

== ENCOUNTER 2017-08-26 14:51 | Emergency (ER) | payer MEDICAID, MEDICARE ==
[~2017-08-26] VITALS: Ht 144.8 cm; Wt 80.0 kg
[~2017-08-26 14:51] MED LIST changes: +ALLO100 PO; -ASPI81TA11 PO; +ASPI81TA23 PO; -CIPR-9 PO; -COQ-50CA2; +COQ1200C3 PO; -DEXI60CA2; +DEXI60CA3 PO; +FISH1000 PO; -META48.54 PO; -METR-1 PO; -OMEGCAP PO; -PRAV10TA PO; +PRAV80TA2 PO; -VITA250T3 PO; +VITA500T4 PO
[2017-08-26 15:07] VITALS: BP 180/76; PULSE 84; RESP 20; TEMP 97.5; O2SAT 99
--- NOTE | 2017-08-26 16:09 | RADRPT ---
EXAM DATE/TIME: 08/26/2017 16:02 [facility] COMPARISON: CHEST SINGLE AP, September 22, 2016, 11:11. INDICATIONS : Chest pain and syncope. MEDICAL HISTORY : None. SURGICAL HISTORY : None. ENCOUNTER: Initial ACUITY: 1 day PAIN SCORE: 5/10 LOCATION: Left chest. FINDINGS: Frontal and lateral views of the chest demonstrate a normal-sized cardiac silhouette. No effusion, co nsolidation, or pneumothorax is identified. The bones and soft tissues demonstrate no acute finding. There are degenerative changes of the thoracic spine. CONCLUSION: No acute cardiopulmonary abnormality is identified. Thomas Tran MD on August 26, 2017 at 16:04 Board Certified Radiologist. This report was verified electronically.
[2017-08-26 16:29] LABS: BILIRUBIN, URINE NEG (NEG); BLOOD, URINE NEG (NEG); GLUCOSE,URINE NEG (NEG); KETONE, URINE NEG (NEG); NITRITE,URINE NEG (NEG); PH, URINE 5.5 (5.0-8.5); SQUAMOUS EPITHELIAL CELL URINE <1 /hpf (0-5); URINE COLOR LIGHT-YELLOW (YELLW/STRAW); URINE LEUKOCYTE ESTERASE NEG (NEG)
[2017-08-26 18:04] LABS: AUTOMATED NEUTROPHIL # 10.3 TH/MM3 (1.8-7.7); BASOPHIL # 0.1 TH/MM3 (0-0.2); BASOPHIL % 0.5 % (0.0-2.0); EOSINOPHIL # 0.2 TH/MM3 (0-0.4); EOSINOPHIL % 1.7 % (0.0-4.0); HEMATOCRIT 42.5 % (35.0-46.0); HEMOGLOBIN 14.1 GM/DL (11.6-15.3); LYMPH % 13.9 % (9.0-44.0); LYMPHOCYTE # 1.9 TH/MM3 (1.0-4.8); MEAN CELL VOLUME 89.3 FL (80.0-100.0); MEAN CORPUSCULAR HEMOGLOBIN 29.7 PG (27.0-34.0); MEAN CORPUSCULAR HGB CONC 33.3 % (32.0-36.0); MONO % 7.4 % (0.0-8.0); NEUT % 76.5 % (16.0-70.0); PLATELET COUNT 292 TH/MM3 (150-450); RED BLOOD COUNT 4.76 MIL/MM3 (4.00-5.30); WHITE BLOOD COUNT 13.5 TH/MM3 (4.0-11.0)
[2017-08-26 18:19] LABS: CALCIUM 9.3 MG/DL (8.5-10.1); CREATININE 0.96 MG/DL (0.50-1.00)
[2017-08-26 18:57] VITALS: BP 146/68; PULSE 84; RESP 18; O2SAT 96
[2017-08-26] MEDS ORDERED: ASPIRIN 81 MG CHEW TAB PO ONE (19:15)
--- NOTE | 2017-08-26 19:24 | PD ---
HPI Chief Complaint: Respiratory Symptoms Time Seen by Provider: 18:50 Travel History International Travel<30 days: No Contact w/Intl Traveler<30days: No Traveled to known affect area: No History of Present Illness HPI 86-year-old female presents to the emergency room via ambulance for evaluation of left-sided chest pain that radiates to her shoulder for the past 4 days and dizziness that started today. Chest pain is worse when she lies on her left side or moves certain directions. It is intermittent. States that the right side is beginning to feel the same and she believes that it may be her rheumatoid arthritis acting up. Patient states she got up today and did multiple chores around the house including cooking dinner, vacuuming, and cleaning. Upon finishing, she began to feel weak, dizzy, and "faint." She had associated shortness of breath. States she has felt symptoms like this in the past as well as diagnosed with pneumonia. No nausea, vomiting, or radiation of pain down her arms. She called downstairs to have her neighbor call 911. She denies any recent cough, fever, congestion. No history of heart disease. PFSH Past Medical History Hx Anticoagulant Therapy: No Arthritis: Yes Blood Disorders: No Heart Rhythm Problems: No Cancer: Yes (CERVICAL - HYSTERECTOMY) Cardiovascular Problems: Yes (HTN) High Cholesterol: Yes Chemotherapy: No Chest Pain: Yes Congestive Heart Failure: No Diabetes: No Diminished Hearing: No Deep Vein Thrombosis: Yes (R LEG) Endocrine: Yes Gastrointestinal Disorders: Yes (GERD) GERD: Yes Genitourinary: No Hypertension: Yes Immune Disorder: No Implanted Vascular Access Dvce: No Musculoskeletal: Yes (arthritis) Neurologic: No Psychiatric: No Reproductive: Yes (CERVICAL CANCER) Respiratory: No Radiation Therapy: No Thyroid Disease: Yes (HYPO) Past Surgical History Appendectomy: Yes Cholecystectomy: Yes Gynecologic Surgery: Yes (RADICAL HYSTERECTOMY ) Hysterectomy: Yes Tonsillectomy: Yes Other Surgery: Yes Social History Alcohol Use: Yes (OCCASIONAL) Tobacco Use: No (30 YEARS AGO ) Substance Use: No Allergies-Medications (Allergen,Severity, Reaction): Coded Allergies: codeine (Unverified Allergy, Severe, Rash, 03/24/17) penicillin G (Unverified Allergy, Severe, 03/24/17) Reported Meds & Prescriptions Reported Meds & Active Scripts Active Zofran (Ondansetron HCl) 4 Mg Tab 4 Mg PO Q6HR PRN Reported Vitamin B-12 (Cyanocobalamin) 500 Mcg Tab 1,500 Mcg PO DAILY Zyloprim (Allopurinol) 100 Mg Tab 100 Mg PO BID Co Q-10 (Coenzyme Q10 (Ubidecarenone)) 200 Mg Cap 200 Mg PO DAILY Fish Oil ([place]-3 Fatty Acids) 1,000 Mg Cap 2,000 Mg PO DAILY Dexilant (Dexlansoprazole) 60 Mg Jose.bp 60 Mg PO DAILY Pravastatin 80 Mg Tab 80 Mg PO HS Vitamin B-6 (Pyridoxine HCl) 100 Mg Tab 100 Mg PO DAILY Vitamin D3 (Cholecalciferol) 400 Unit Cap 400 Units PO DAILY Folic Acid 400 Mcg Tab 400 Mcg PO DAILY Levothyroxine (Levothyroxine Sodium) 50 Mcg Tab 50 Mcg PO DAILY Amlodipine (Amlodipine Besylate) 5 Mg Tab 5 Mg PO DAILY Aspirin EC (Aspirin) 81 Mg Tabdr 81 Mg PO DAILY Review of Systems Except as stated in HPI: all other systems reviewed are Neg Physical Exam Narrative GENERAL: Well-nourished, well-developed female in no acute distress. Afebrile. Ambulatory. SKIN: Focused skin assessment warm/dry. HEAD: Normocephalic. EYES: No scleral icterus. No injection or drainage. NECK: Supple, trachea midline. No JVD or lymphadenopathy. CARDIOVASCULAR: Regular rate and rhythm without murmurs, gallops, or rubs. RESPIRATORY: Breath sounds equal bilaterally. No accessory muscle use. CHEST: Nontender throughout without deformity or crepitus. No retractions or use of accessory muscles. GASTROINTESTINAL: Abdomen soft, non-tender, nondistended. MUSCULOSKELETAL: No cyanosis, or edema. Full range of motion of the left upper extremity. BACK: Nontender without obvious deformity. No CVA tenderness. Data Data Last Documented VS Vital Signs Date Time Temp Pulse Resp B/P (MAP) Pulse Ox O2 Delivery O2 Flow Rate FiO2 08/26/17 18:57 84 18 146/68 (94) 96 Room Air 08/26/17 15:10 3.00 08/26/17 15:07 97.5 Orders Orders Complete Blood Count With Diff (08/26/17 15:51) Basic Metabolic Panel (Bmp) (08/26/17 15:51) Chest, Pa & Lat (08/26/17 15:51) Blood Culture (08/26/17 15:51) Iv Access Insert/Monitor (08/26/17 15:51) Oxygen Administration (08/26/17 15:51) Electrocardiogram (08/26/17 15:51) Urinalysis - C+S If Indicated (08/26/17 15:51) Troponin I (08/26/17 19:13) Troponin I (08/26/17 20:00) B-Type Natriuretic Peptide (08/26/17 19:13) Ckmb (Isoenzyme) Profile (08/26/17 19:13) Aspirin Chew (Aspirin Chew) (08/26/17 19:15) Labs Laboratory Tests Test 08/26/17 15:59 08/26/17 17:00 08/26/17 19:30 Urine Color LIGHT-YELLOW Urine Turbidity CLEAR Urine pH 5.5 Urine Specific [place] 1.003 Urine Protein TRACE mg/dL Urine Glucose (UA) NEG mg/dL Urine Ketones NEG mg/dL Urine Occult Blood NEG Urine Nitrite NEG Urine Bilirubin NEG Urine Urobilinogen LESS THAN 2.0 MG/DL Urine Leukocyte Esterase NEG Urine RBC LESS THAN 1 /hpf Urine Squamous Epithelial Cells <1 /hpf Microscopic Urinalysis Comment CULT NOT INDICATED White Blood Count 13.5 TH/MM3 Red Blood Count 4.76 MIL/MM3 Hemoglobin 14.1 GM/DL Hematocrit 42.5 % Mean Corpuscular Volume 89.3 FL Mean Corpuscular Hemoglobin 29.7 PG Mean Corpuscular Hemoglobin Concent 33.3 % Red Cell Distribution Width 15.0 % Platelet Count 292 TH/MM3 Mean Platelet Volume 9.0 FL Neutrophils (%) (Auto) 76.5 % Lymphocytes (%) (Auto) 13.9 % Monocytes (%) (Auto) 7.4 % Eosinophils (%) (Auto) 1.7 % Basophils (%) (Auto) 0.5 % Neutrophils # (Auto) 10.3 TH/MM3 Lymphocytes # (Auto) 1.9 TH/MM3 Monocytes # (Auto) 1.0 TH/MM3 Eosinophils # (Auto) 0.2 TH/MM3 Basophils # (Auto) 0.1 TH/MM3 CBC Comment AUTO DIFF Differential Comment AUTO DIFF CONFIRMED Platelet Estimate NORMAL Platelet Morphology Comment NORMAL Blood Urea Nitrogen 19 MG/DL Creatinine 0.96 MG/DL Random Glucose 122 MG/DL Calcium Level 9.3 MG/DL Sodium Level 137 MEQ/L Potassium Level 4.1 MEQ/L Chloride Level 102 MEQ/L Carbon Dioxide Level 28.0 MEQ/L Anion Gap 7 MEQ/L Estimat Glomerular Filtration Rate 55 ML/MIN Total Creatine Kinase 64 U/L Troponin I LESS THAN 0.02 NG/ML LESS THAN 0.02 NG/ML B-Type Natriuretic Peptide 36 PG/ML MDM Medical Decision Making Medical Screen Exam Complete: Yes Emergency Medical Condition: Yes Medical Record Reviewed: Yes Differential Diagnosis Rheumatoid arthritis, STEMI, chest pain, pneumonia Narrative Course 86-year-old female presents to the emergency room for evaluation of left-sided chest pain for past 4 days. She has associated dizziness that started earlier today. Patient states she felt "faint" after cleaning her house. She denies any cardiac history. Last had a normal stress test 1-2 years ago. IV access established and basic labs obtained. CBC and BMP are unremarkable. Troponins performed 3 hours apart are less than 0.02. BNP is 36. UA is unremarkable. EKG shows sinus rhythm with a rate of [address] changes. Chest x-ray is negative. Vital signs stable. Patient is overall very well appearing. She is adamant about going home to her own bed. Given history and physical exam, I am concerned for cardiac etiology. Patient was offered chest pain center admission but declined. She will be leaving AGAINST MEDICAL ADVICE. AMA: The risks of leaving against medical advice without further evaluation treatment were discussed with the patient. These risks include cardiac dysfunction, cardiac dysrhythmia, possible heart attack, possible stroke or . The patient indicated understanding of these risks and appeared to have the capacity to make this decision. Diagnosis Primary Impression: Atypical chest pain Referrals: Primary Care Physician Additional Instructions: Take Tylenol for pain. Follow-up with primary care physician. Return for worsening symptoms. Disposition: AGAINST MEDICAL ADVICE Condition: Stable Brandy Mace Aug 26, 2017 19:24
[2017-08-26 19:40] LABS: TROPONIN I LESS THAN 0.02 NG/ML (0.02-0.05)
--- NOTE | 2017-08-27 22:30 | EKG ---
Date Performed: 08/26/2017 Time Performed: 16:40:09 PTAGE: 86 years EKG: Sinus rhythm NONSPECIFIC T-WAVE ABNORMALITY BORDERLINE ECG PREVIOUS TRACING : 03/01/2017 16.09 Since previous tracing, no significant change noted DOCTOR: Edward Quintero Interpretating Date/Time 08/27/2017 22:30:19
== END 2017-08-26 21:20 | disposition left against medical advice (07) ==
LOC: NEDAMB 14:51
DX: R07.89 Other chest pain (principal); R42 Dizziness and giddiness; R53.1 Weakness; R06.02 Shortness of breath; R94.31 Abnormal electrocardiogram [ECG] [EKG]; M19.90 Unspecified osteoarthritis, unspecified site; I10 Essential (primary) hypertension; E78.00 Pure hypercholesterolemia, unspecified; Z86.718 Personal history of other venous thrombosis and embolism
CPT/HCPCS: 71046; 80048; 81001; 82550; 83880; 84484; 85025; 87040; 93005; 99284

== ENCOUNTER 2017-11-15 14:22 | Emergency (ER) | payer MEDICARE, OTHER ==
[~2017-11-15] VITALS: Ht 162.6 cm; Wt 60.0 kg
[2017-11-15 14:30] VITALS: BP 158/80; PULSE 96; RESP 14; TEMP 98.8; O2SAT 95
--- NOTE | 2017-11-15 15:59 | PD ---
HPI Chief Complaint: Pain: Acute or Chronic Time Seen by Provider: 15:39 Travel History International Travel<30 days: No Contact w/Intl Traveler<30days: No Traveled to known affect area: No History of Present Illness HPI 87 year old female presents to the emergency department for evaluation after a slip and fall that occurred approximately 2 weeks ago. Patient states she was walking down her [place] in her apartment when she grabbed onto a swivel chair. She states the chair spun and she fell. The patient states she hit her head, but had no LOC. She denies being on anticoagulants or having any bleeding disorders. She states she takes an ibuprofen before bed which does help her pain. Patient states she has not yet been seen for this fall. She complains of intermittent headaches, none at this time. She reports chronic neck pain, unsure if it is worse since the fall. She reports low back pain, left hip pain and left knee pain since the fall. She has been ambulatory since the fall, but states that walking aggravates her pain. Patient denies any chest pain or SOB. No abdominal pain, nausea, vomiting, or diarrhea. Mild to moderate severity. PFSH Past Medical History Hx Anticoagulant Therapy: No Arthritis: Yes Blood Disorders: No Heart Rhythm Problems: No Cancer: Yes (CERVICAL - HYSTERECTOMY) Cardiovascular Problems: Yes (HTN) High Cholesterol: Yes Chemotherapy: No Chest Pain: Yes Congestive Heart Failure: No Diabetes: No Diminished Hearing: No Deep Vein Thrombosis: Yes (R LEG) Endocrine: Yes Gastrointestinal Disorders: Yes (GERD) GERD: Yes Genitourinary: No Hypertension: Yes Immune Disorder: No Implanted Vascular Access Dvce: No Musculoskeletal: Yes (arthritis) Neurologic: No Psychiatric: No Reproductive: Yes (CERVICAL CANCER) Respiratory: No Radiation Therapy: No Thyroid Disease: Yes (HYPO) Past Surgical History Appendectomy: Yes Cholecystectomy: Yes Gynecologic Surgery: Yes (RADICAL HYSTERECTOMY ) Hysterectomy: Yes Tonsillectomy: Yes Other Surgery: Yes Social History Alcohol Use: Yes (OCCASIONAL) Tobacco Use: No (30 YEARS AGO ) Substance Use: No Allergies-Medications (Allergen,Severity, Reaction): Coded Allergies: codeine (Unverified Allergy, Severe, Rash, 11/15/17) penicillin G (Unverified Allergy, Severe, 11/15/17) Reported Meds & Prescriptions Reported Meds & Active Scripts Active Reported Vitamin B-12 (Cyanocobalamin) 500 Mcg Tab 1,500 Mcg PO DAILY Zyloprim (Allopurinol) 100 Mg Tab 100 Mg PO BID Dexilant (Dexlansoprazole) 60 Mg bp 60 Mg PO DAILY Pravastatin 80 Mg Tab 80 Mg PO HS Vitamin B-6 (Pyridoxine HCl) 100 Mg Tab 100 Mg PO DAILY Vitamin D3 (Cholecalciferol) 400 Unit Cap 400 Units PO DAILY Folic Acid 400 Mcg Tab 400 Mcg PO DAILY Levothyroxine (Levothyroxine Sodium) 50 Mcg Tab 50 Mcg PO DAILY Amlodipine (Amlodipine Besylate) 5 Mg Tab 5 Mg PO DAILY Aspirin EC (Aspirin) 81 Mg Tabdr 81 Mg PO DAILY Review of Systems Except as stated in HPI: all other systems reviewed are Neg Physical Exam Narrative GENERAL: Well developed, well nourished elderly female patient, afebrile. No SKIN: Warm and dry. No lacerations noted. HEAD: Normocephalic. Atraumatic. ENT: Mucosa pink and moist. No erythema or exudates. No uvular edema. No uvular , palatal, or tonsillar deviation. Airway patent. Nasal turbinates appear normal without nasal blood, purulent drainage or septal hematoma. Bilateral tympanic membranes are clear without erythema or perforation. EYES: No scleral icterus. No injection or drainage. NECK: Supple, trachea midline. No JVD or lymphadenopathy. CARDIOVASCULAR: Regular rate and rhythm without murmurs, gallops, or rubs. Bilateral radial and pedal pulses 2+. RESPIRATORY: Breath sounds equal bilaterally. No accessory muscle use. Lung sounds are clear to auscultation. GASTROINTESTINAL: Abdomen soft, non-tender, nondistended. No abdominal pain to palpation. MUSCULOSKELETAL: No cyanosis, or edema. Patient has tenderness over left lateral hip and left anterior knee. BACK: No obvious deformity. No CVA tenderness. She has tenderness over midline cervical and lumbar spine. No bony stepoff or crepitus. Data Data Last Documented VS Vital Signs Date Time Temp Pulse Resp B/P (MAP) Pulse Ox O2 Delivery O2 Flow Rate FiO2 11/15/17 14:30 98.8 96 14 158/80 (106) [address] Brain W/O Iv Contrast(Rout) (11/15/17 ) Ct Cerv Spine W/O Contrast (11/15/17 ) Spine, Lumbar - Ltd (Ap & Lat) (11/15/17 ) Hip, Uni(Ap&Lat) W Ap Pelvis (11/15/17 ) Femur (Ap & Lat/2vws) (11/15/17 ) Acetaminophen (Tylenol) (11/15/17 17:00) MDM Medical Decision Making Medical Screen Exam Complete: Yes Emergency Medical Condition: Yes Medical Record Reviewed: Yes Interpretation(s) Last Impressions Lumbar Spine X-Ray 11/15/17 0000 Signed Impressions: Service Date/Time: Wednesday, November 15, 2017 16:07 - CONCLUSION: No fracture or acute appearing malalignment of lumbar spine. Scoliosis and degenerative changes as above. Thomas Dobbins MD Hip and Pelvis X-Ray 11/15/17 0000 Signed Impressions: Service Date/Time: Wednesday, November 15, 2017 16:03 - CONCLUSION: Intact pelvis and left hip. Thomas Dobbins MD Head CT 11/15/17 0000 Signed Impressions: Service Date/Time: Wednesday, November 15, 2017 16:16 - CONCLUSION: No bleed or other acute intracranial abnormality. Atrophy and chronic white matter changes. Thomas Dobbins MD Femur X-Ray 11/15/17 0000 Signed Impressions: Service Date/Time: Wednesday, November 15, 2017 16:05 - CONCLUSION: Intact left femur. Thomas Dobbins MD Cervical Spine CT 11/15/17 0000 Signed Impressions: Service Date/Time: Wednesday, November 15, 2017 16:16 - CONCLUSION: 1. Mild cervical dextroscoliosis with facet arthropathy. No acute fracture. Stable degenerative change. No significant canal stenosis. Bob Pineda MD Differential Diagnosis closed head injury vs. intracranial hemorrhage vs. strain vs. sprain vs. sciatica vs. fracture vs. dislocation Narrative Course 87 year old female presents to the emergency department for evaluation after a slip and fall that occurred approximately [address] of the brain and cervical spine are ordered and pending. X-ray of the lumbar spine, left hip with pelvis, and femur are ordered and pending. She declines any pain medication at this time. X-ray of the lumbar spine shows No fracture or acute appearing malalignment of lumbar spine. X-ray of the left hip with pelvis shows Intact pelvis and left hip. X-ray of the left femur shows Intact left femur.. CT of the brain shows No bleed or other acute intracranial abnormality. CT of the cervical spine shows no acute fracture. Patient is given Tylenol 650 mg PO for pain. Patient is stable for discharge. She is instructed to follow up with her primary care provider. She verbalizes agreement and understanding. She is to return to the emergency department for any acute, worsening of symptoms. Diagnosis Primary Impression: Closed head injury Qualified Codes: S09.90XA - Unspecified injury of head, initial encounter Additional Impressions: Cervical strain Qualified Codes: S16.1XXA - Strain of muscle, fascia and tendon at neck level , initial encounter Contusion of left hip Qualified Codes: S70.02XA - Contusion of left hip, initial encounter Referrals: Primary Care Physician call for appointment Patient Instructions: Cervical Strain (ED), Contusion in Adults (ED), General Instructions, Head Injury (ED) Additional Instructions: Over the counter Tylenol every 4 hours as needed for pain. Heating pad on low for 20 mins 4-5 times daily. Follow up with your primary care physician. Return to the emergency department for any acute, worsening of symptoms. Med/Other Pt SpecificInfo: No Change to Meds Disposition: 01 DISCHARGE HOME Condition: Stable Mayela Longo MICHELLE Nov 15, 2017 15:59
--- NOTE | 2017-11-15 16:21 | RADRPT ---
EXAM DATE/TIME: 11/15/2017 16:03 [facility] COMPARISON: No previous studies available for comparison. INDICATIONS : Pain at left hip from fall. MEDICAL HISTORY : None. SURGICAL HISTORY : None. ENCOUNTER: Initial ACUITY: 1 day PAIN SCORE: 5/10 LOCATION: Left hip FINDINGS: Examination of the left hip was performed with AP Pelvis. The primary and secondary trabecular patte rn of the femoral neck is intact. The hip joint is of normal width without significant sclerosis or bony hypertrophy. The acetabulum is grossly intact. CONCLUSION: Intact pelvis and left hip. Thomas Dobbins MD on November 15, 2017 at 16:18 Board Certified Radiologist. This report was verified electronically.
--- NOTE | 2017-11-15 16:22 | RADRPT ---
EXAM DATE/TIME: 11/15/2017 16:07 [facility] COMPARISON: No previous studies available for comparison. INDICATIONS : Pain at lower back from fall. MEDICAL HISTORY : None. SURGICAL HISTORY : None. ENCOUNTER: Initial ACUITY: 1 day PAIN SCORE: 5/10 LOCATION: Bilateral back FINDINGS: Approximately 4 mm of degenerative appearing anterolisthesis seen at L4/L5. There is mild dextroconve x curvature of the lumbar spine centered around L3/L4. No fracture or acute appearing malalignment de monstrated. Vertebral bodies have normal height. There is moderate disc space narrowing at essentially all levels. Vacuum phenomena seen of the L3/L4 and L4/L5 and L5/S1 discs. 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 CONCLUSION: No fracture or acute appearing malalignment of lumbar spine. Scoliosis and degenerative changes as ab ove. Thomas Dobbins MD on November 15, 2017 at 16:18 Board Certified Radiologist. This report was verified electronically.
--- NOTE | 2017-11-15 16:23 | RADRPT ---
EXAM DATE/TIME: 11/15/2017 16:05 [facility] COMPARISON: No previous studies available for comparison. INDICATIONS : Pain in left leg from fall. MEDICAL HISTORY : None. SURGICAL HISTORY : None. ENCOUNTER: Initial ACUITY: 1 day PAIN SCORE: 5/10 LOCATION: Left femur FINDINGS: Two view examination of the left femur demonstrates no evidence of fracture or dislocation. Bony min eralization is normal. The soft tissue structures are intact. CONCLUSION: Intact left femur. Thomas Dobbins MD on November 15, 2017 at 16:20 Board Certified Radiologist. This report was verified electronically.
--- NOTE | 2017-11-15 16:37 | RADRPT ---
EXAM DATE/TIME: 11/15/2017 16:16 [facility] COMPARISON: CT BRAIN W/O CONTRAST, March 30, 2016, 22:47. INDICATIONS : Fell 2 weeks ago hitting head, now blurred vision, headaches. RADIATION DOSE: 66.34 CTDIvol (mGy) MEDICAL HISTORY : Hypothyroidism. Hypercholesterolemia. Hypertension.GERD,Cervical ca SURGICAL HISTORY : Tonsillectomy. Appendectomy.Hysterectomy.Mery, ortho(knee) ENCOUNTER: Initial ACUITY: 2 weeks PAIN SCALE: 5/10 LOCATION: cranial TECHNIQUE: Multiple contiguous axial images were obtained of the head. Using automated exposure control and adj ustment of the mA and/or kV according to patient size, radiation dose was kept as low as reasonably a chievable to obtain optimal diagnostic quality images. DICOM format image data is available electro nically for review and comparison. FINDINGS: CEREBRUM: The ventricles are normal for age. No evidence of midline shift, mass lesion, hemorrhage or acute in farction. No extra-axial fluid collections are seen. Diffuse atrophy noted. There is chronic low-att enuation in the periventricular white matter. POSTERIOR FOSSA: The cerebellum and brainstem are intact. The 4th ventricle is midline. The cerebellopontine angle i s unremarkable. EXTRACRANIAL: The visualized portion of the orbits is intact. SKULL: The calvaria is intact. No evidence of skull fracture. CONCLUSION: No bleed or other acute intracranial abnormality. Atrophy and chronic white matter changes. Thomas Dobbins MD on November 15, 2017 at 16:33 Board Certified Radiologist. This report was verified electronically.
--- NOTE | 2017-11-15 16:47 | RADRPT ---
EXAM DATE/TIME: 11/15/2017 16:16 [facility] COMPARISON: CT CERVICAL SPINE W/O CONTRAST, March 30, 2016, 22:47. INDICATIONS : Fall 2 weeks ago, pain. RADIATION DOSE: 20.51 CTDIvol (mGy) MEDICAL HISTORY : Hypothyroidism. Hypertension. Hypercholesterolemia.GERD,Cervical ca, DVT rt leg SURGICAL HISTORY : Tonsillectomy. Appendectomy.Hysterectomy.Mery ENCOUNTER: Initial ACUITY: 2 weeks PAIN SCALE: 8/10 LOCATION: neck TECHNIQUE: Volumetric scanning of the cervical spine was performed. Multiplanar reconstructions in the sagittal, coronal and oblique axial planes were performed. Using automated exposure control and adjustment o f the mA and/or kV according to patient size, radiation dose was kept as low as reasonably achievable to obtain optimal diagnostic quality images. DICOM format image data is available electronically f or review and comparison. FINDINGS: There is a mild cervical dextroscoliosis. No acute fracture. Minimal degenerative anterolisthesis of C3 on C4 stable since March 2016. No prevertebral soft tissue swelling is present. CONCLUSION: 1. Mild cervical dextroscoliosis with facet arthropathy. No acute fracture. Stable degenerative solis e. No significant canal stenosis. Bob Pineda MD on November 15, 2017 at 16:38 Board Certified Radiologist. This report was verified electronically.
[2017-11-15] MEDS ORDERED: ACETAMINOPHEN 325 MG TAB PO ONE (17:00)
== END 2017-11-15 17:44 | disposition home or self-care (01) ==
LOC: NEDAMB 14:22 → NEPC 17:44
DX: S09.90XA Unspecified injury of head, initial encounter (principal); S16.1XXA Strain of muscle, fascia and tendon at neck level, initial encounter; S70.02XA Contusion of left hip, initial encounter; W01.0XXA Fall on same level from slipping, tripping and stumbling without subsequent striking against object, initial encounter; Y93.01 Activity, walking, marching and hiking; Y92.038 Other place in apartment as the place of occurrence of the external cause
CPT/HCPCS: 70450; 72100; 72125; 73502; 73552; 99284